=== PATIENT | male | born 1980 | race Caucasian/White ===

== ENCOUNTER 2024-09-25 16:01 | Emergency (ER) | payer BC, OTHER ==
[2024-09-25 16:46] LABS: BASOPHILS PERCENT AUTO 0.5 % (0.2-1.2); EOSINOPHILS ABSOLUTE AUTO 0.1 x10^3/uL (0.0-0.5); EOSINOPHILS PERCENT AUTO 1.7 % (0.0-4.0); HEMATOCRIT 30.6 % (40.0-52.0); HEMOGLOBIN 11.4 g/dL (14.0-18.0); IMMATURE GRAN ABSOLUTE AUTO 0.04 x10^3/uL (0.00-0.07); LYMPHOCYTES ABSOLUTE AUTO 0.4 x10^3/uL (1.0-4.8); MEAN CORPUSCULAR HEMOGLOBIN 35.1 pg (26.0-32.0); MEAN CORPUSCULAR HGB CONC 37.3 g/dL (32.0-36.0); MEAN CORPUSCULAR VOLUME 94.2 fL (78.0-93.0); MONOCYTES ABSOLUTE AUTO 0.5 x10^3/uL (0.0-0.8); MONOCYTES PERCENT AUTO 8.1 % (2.0-11.0); NEUTROPHILS ABSOLUTE AUTO 5.2 x10^3/uL (1.8-7.7); NEUTROPHILS PERCENT AUTO 82.6 % (50.0-80.0); PLATELET COUNT,PLT 101 x10^3/uL (130-400); RED BLOOD CELL COUNT 3.25 x10^6/uL (4.5-6.0); WHITE BLOOD CELL COUNT,WBC 6.3 x10^3/uL (4.0-10.0)
[2024-09-25 16:54] LABS: LYMPHOCYTES PERCENT AUTO 6.5 % (25.0-50.0)
[2024-09-25 17:06] LABS: INR 1.6 (0.9-1.1); PROTHROMBIN TIME 15.7 SEC (8.9-11.5)
[2024-09-25 17:13] LABS: A/G RATIO 0.23; ALBUMIN 1.5 g/dL (3.4-5.0); ANION GAP 11.5 mmol/L (5-15); CREATININE 0.7 mg/dL (0.70-1.30); EST CRCL DRUG DOSING (CG) 134.67 mL/min; MAGNESIUM 1.6 mg/dL (1.8-2.4); POTASSIUM,K 4.5 mmol/L (3.5-5.1); PROTEIN TOTAL,TP 8.1 g/dL (6.4-8.2)
[2024-09-25] MEDS: Pantoprazole 40 MG Vial IVPUSH ONE (18:05)
== END 2024-09-25 18:33 | disposition short-term general hospital (02) ==
LOC: VM.ED 16:01
DX: F10.129 Alcohol abuse with intoxication, unspecified (principal); K92.1 Melena; E87.1 Hypo-osmolality and hyponatremia; D64.9 Anemia, unspecified
CPT/HCPCS: 71046; 80053; 80307; 82274; 83690; 83735; 83880; 85025; 85610; 96374; 99285-25; J2470

== ENCOUNTER 2025-03-11 15:28 | Emergency (ER) | payer SELFPAY ==
[2025-03-11] MEDS ORDERED: Sodium Chloride 0.9% 10 ML Syringe FLUSH PRN (15:42)
[2025-03-11 15:59] LABS: BASOPHILS PERCENT AUTO 0.5 % (0.2-1.2); EOSINOPHILS ABSOLUTE AUTO 0.1 x10^3/uL (0.0-0.5); EOSINOPHILS PERCENT AUTO 0.8 % (0.0-4.0); HEMATOCRIT 38.7 % (40.0-52.0); HEMOGLOBIN 13.3 g/dL (14.0-18.0); IMMATURE GRAN ABSOLUTE AUTO 0.01 x10^3/uL (0.00-0.07); LYMPHOCYTES ABSOLUTE AUTO 0.4 x10^3/uL (1.0-4.8); MEAN CORPUSCULAR HEMOGLOBIN 27.9 pg (26.0-32.0); MEAN CORPUSCULAR HGB CONC 34.4 g/dL (32.0-36.0); MEAN CORPUSCULAR VOLUME 81.3 fL (78.0-93.0); MONOCYTES ABSOLUTE AUTO 0.7 x10^3/uL (0.0-0.8); MONOCYTES PERCENT AUTO 10.9 % (2.0-11.0); NEUTROPHILS ABSOLUTE AUTO 5.3 x10^3/uL (1.8-7.7); NEUTROPHILS PERCENT AUTO 81.6 % (50.0-80.0); PLATELET COUNT,PLT 243 x10^3/uL (130-400); RED BLOOD CELL COUNT 4.76 x10^6/uL (4.5-6.0); WHITE BLOOD CELL COUNT,WBC 6.5 x10^3/uL (4.0-10.0)
[2025-03-11] MEDS: Lactated Ringers 1,000 ML IV ONE (15:59)
[2025-03-11] MEDS: Ondansetron 4 MG/2 ML SDV IVPUSH ONE (16:01)
[2025-03-11] MEDS: HYDROmorphone 1 MG/ML Syringe IVPUSH ONE (16:03)
[2025-03-11 16:19] LABS: INR 1.2 (0.9-1.1); PROTHROMBIN TIME 12.7 SEC (9.6-12.0); PTT,PARTIAL THROMBOPLSTIN TIME 33.2 SEC (23.5-33.2)
[2025-03-11 16:31] LABS: LACTIC ACID 2.3 mmol/L (0.4-2.0)
[2025-03-11 16:34] LABS: A/G RATIO 0.43; ALANINE AMINOTRANSFERASE,ALT 14 U/L (16-63); ALBUMIN 2.7 g/dL (3.4-5.0); ALKALINE PHOSPHATASE 123 U/L (46-116); AMYLASE 70 U/L (25-115); ANION GAP 12.7 mmol/L (5-15); ASPARTATE AMNIOTRANSFERASE,AST 26 U/L (15-37); BILIRUBIN TOTAL 1.5 mg/dL (0.2-1.0); BLOOD UREA NITROGEN,BUN 14 mg/dL (7-18); C-REACTIVE PROTEIN 1.13 mg/dL (<=0.50); CALCIUM 9.2 mg/dL (8.5-10.1); CARBON DIOXIDE,CO2 29 mmol/L (21-32); CHLORIDE,CL 95 mmol/L (98-107); CREATININE 1.3 mg/dL (0.70-1.30); ESTIMATED GFR 69 mL/min (>=60); ETHANOL BLOOD MEDICAL < 3 mg/dL (0-3); GLUCOSE RANDOM 139 mg/dL (70-99); LIPASE 34 U/L (19-71); MAGNESIUM 1.7 mg/dL (1.8-2.4); POTASSIUM,K 3.7 mmol/L (3.5-5.1); SODIUM,NA 133 mmol/L (136-145); TSH ULTRASENSITIVE 1.321 uIU/mL (0.358-3.74)
[2025-03-11] MEDS: Iopamidol 612 MG/ML 100 ML Bottle IVPUSH ONE (17:06)
[2025-03-11 17:13] LABS: APPEARANCE,URINE CLEAR (CLEAR); BILIRUBIN,URINE NEGATIVE (NEGATIVE); COLOR,URINE YELLOW (YELLOW); GLUCOSE,URINE NEGATIVE (NEGATIVE); KETONES,URINE NEGATIVE (NEGATIVE); LEUKOCYTE ESTERASE,URINE NEGATIVE (NEGATIVE); NITRITE,URINE NEGATIVE (NEGATIVE); OCCULT BLOOD,URINE NEGATIVE (NEGATIVE); PROTEIN,URINE NEGATIVE (NEGATIVE)
[2025-03-11] MEDS: Take Home: Acetaminophen/HYDROcodone 325-5 MG, 5 Tab Pack PO ONE (18:39)
[2025-03-11] MEDS: Take Home: Ciprofloxacin 500 MG Tab, 2 Tab Pack PO ONE (18:39)
[2025-03-11] MEDS: Take Home: metroNIDAZOLE 500 MG Tab, 6 Tab Pack PO ONE (18:39)
== END 2025-03-11 18:46 | disposition home or self-care (01) ==
LOC: VM.ED 15:28
DX: K81.9 Cholecystitis, unspecified (principal); Z88.0 Allergy status to penicillin; Z79.899 Other long term (current) drug therapy
CPT/HCPCS: 36415; 71046; 74177; 80053; 80307; 81003; 82140; 82150; 83605; 83690; 83735; 84443; 85025; 85610; 85730; 86140; 96374; 96375; 99284; 99284-25; A9270-GY; J1171; J2405; J7120; Q9967